=== PATIENT | female | born 1935 | race Caucasian/White ===

== ENCOUNTER → 2017-01-19 | Outpatient (CLI) | payer MEDICARE, OTHER ==
[~2017-01-19] MED LIST: ALIGN4 M1 PO; AMITIZA24 MCG ORAL; CALCIUM500 M2 PO; GAS-X80 MG PO; LANOXIN62.5 MCG PO; LIBRAX1 EA ORAL; LIMBREL 500 MG500 MG ORAL; LINZESS145 MCG PO; METOPROLOL SUCC25 MG ORAL; NEURONTIN600 MG ORAL; NEXIUM40 MG ORAL; SYNTHROID75 MCG ORAL; VITAMIN D1000 UNI1 ORAL; ZANTAC150 MG ORAL
[2017-01-19 10:30] VITALS: BP 115/59
--- NOTE | 2017-01-19 11:22 | GI Progress Note ---
Assessment/Plan Problems: (1) Abdominal pain ICD Codes: R10.9 - Unspecified abdominal pain SNOMED: 51585689 (2) GERD (gastroesophageal reflux disease) ICD Codes: K21.9 - Gastro-esophageal reflux disease without esophagitis SNOMED: 038781524 (3) Constipation ICD Codes: K59.00 - Constipation, unspecified SNOMED: 02946541 Status: stable Status Narrative Seen with Dr. Obando. Assessment/Plan breath test @ [facility] >> negative continue Nexium QOD Zantac QOD/prn med change >> Linzess to Amitiza cont align RTC x 3 months repeat colon x 3 years Subjective Subjective GERD with cough constipation Objective Last 24 Hour Vital Signs Date Time Temp Pulse Resp B/P Pulse Ox O2 Delivery O2 Flow Rate FiO2 01/19/17 10:30 97.6 56 18 115/59 Weight (Pounds): 121 General Appearance: no apparent distress, alert Cardiovascular: normal rate Respiratory/Chest: normal breath sounds, no respiratory distress Abdominal Exam: normal bowel sounds, non tender, soft Extremities: normal range of motion Linda Rosenbaum N.P. Jan 19, 2017 11:22
== END | disposition home or self-care (01) ==
LOC: PAN 10:14
DX: K21.9 Gastro-esophageal reflux disease without esophagitis (principal); R10.9 Unspecified abdominal pain; K59.00 Constipation, unspecified; R05 Cough
CPT/HCPCS: 99211